=== PATIENT | female | born 1985 | race Caucasian/White ===

== ENCOUNTER 2025-03-21 05:40 | Day surgery (SDC) | payer OTHER, SELFPAY ==
--- NOTE | 2025-03-18 09:23 | ESHP_ITS ---
RE: ABY GABRIEL : 1985 DATE OF ADMISSION: 03/21/2025 HISTORY OF PRESENT ILLNESS: This is a 39-year-old 3, para 2-0-1-2 with abnormal uterine bleeding and endometrial polyp, who presents for hysteroscopic polyp removal. ALLERGIES: NO KNOWN DRUG ALLERGIES. MEDICATIONS: None. SOCIAL HISTORY: She is . She denies any alcohol, drug use, or smoking. PAST MEDICAL HISTORY: Borderline chronic hypertension, Dupuytren's contracture bilaterally, gestational hypertension, colon polyps. FAMILY HISTORY: Colon cancer, hypertension, familial polyposis. OBSTETRIC HISTORY: Two previous full-term normal vaginal deliveries. PAST SURGICAL HISTORY: Colonoscopy with polyp removal. REVIEW OF SYSTEMS: She denies any chest pain, palpitations, cough, fever, shortness of breath, or lower extremity pain. She denies any headache, change in vision, right upper quadrant pain, or flank pain. PHYSICAL EXAMINATION: VITAL SIGNS: Blood pressure is 126/84, heart rate 88, respirations 18, temperature 98.6. HEENT: Oropharynx and sclerae are clear. LUNGS: Clear to auscultation bilaterally. HEART: Regular rate and rhythm. ABDOMEN: Nontender. PELVIC: Deferred. EXTREMITIES: Nontender. SKIN: No gross rashes or lesions. NEUROLOGIC: No focal deficit. ASSESSMENT: Abnormal uterine bleeding, endometrial polyp. PLAN: Hysteroscopy, MyoSure removal of endometrial polyp, fractional dilatation and curettage. Informed consent was obtained. The patient was made aware of the risks, complications, alternatives, and benefits of the proposed procedure, and she agrees. She is aware of the risk of injury to bowel, bladder, adjacent organs, pulmonary embolism, deep vein thrombosis, pelvic infection, reoperation to repair injury to internal organs, anesthesia complications, the possibility that a laparotomy needs to be performed to repair organs or control bleeding, the possibility that procedure is not able to be completed due to severe adhesions or technical difficulties. DT: 08:33:03 TT: 09:21:00 Ref: [id number] - TID: [id number]
[2025-03-20 10:25] VITALS: BMI 42.1
[2025-03-20 11:06] LABS: Basophils # (Auto) 0.0 Thou/mm3 (0.0-0.2); Basophils % (Auto) 0 % (0-2.5); Eosinophils # (Auto) 0.2 Thou/mm3 (0.0-0.5); Eosinophils % (Auto) 3 % (0-10); Hematocrit 43.0 % (36.0-46.0); Hemoglobin 14.2 g/dL (12.0-16.0); Immature Granulocytes Auto 0.02 Thou/mm3 (0.00-0.00); Lymphocytes # (Auto) 2.2 Thou/mm3 (1.0-4.8); Lymphocytes % (Auto) 33 % (10-50); Mean Corpuscular HGB Conc 33.0 g/dl (31.0-37.0); Mean Corpuscular Hemoglobin 29.6 pg (25.0-35.0); Mean Corpuscular Volume 90 fL (80-100); Monocytes # (Auto) 0.5 Thou/mm3 (0.0-0.8); Monocytes % (Auto) 8 % (0-12); Neutrophils # (Auto) 3.7 Thou/mm3 (1.8-7.7); Neutrophils % (Auto) 55 % (37-80); Nucleated Red Blood Cell # 0.00 Thou/mm3 (0.00-0.00); Nucleated Red Blood Cell % 0 /100 WBC (0); Platelet Count 317 Thou/mm3 (140-440); RDW Standard Deviation 43.2 fL (36.4-46.3); Red Blood Count 4.79 Miln/mm3 (4.00-5.20); White Blood Count 6.7 Thou/mm3 (3.6-11.0)
[2025-03-20 11:19] LABS: INR 1.1 (0.9-1.3); Partial Thromboplastin Time 28.6 Seconds (22.0-36.0); Prothrombin Time 11.8 Seconds (9.0-12.2)
[2025-03-20 11:25] LABS: Alanine Aminotransferase 24 U/L (10-49); Albumin, Serum 4.7 gm/dL (3.5-5.0); Albumin/Globulin Ratio 2.1 (1.2-2.2); Alkaline Phosphatase 80 U/L (46-116); Anion Gap 10 (7-16); Aspartate Amino Transferase 22 U/L (0-34); BUN/Creatinine Ratio 15 Ratio (12-20); Beta HCG,Quantitative < 1 mIU/mL (<5.0); Bilirubin,Total 0.5 mg/dL (0.3-1.2); Blood Urea Nitrogen 9 mg/dL (9-23); Calcium 9.8 mg/dL (8.3-10.6); Calcium (Corrected) 9.8 mg/dL (8.5-10.1); Carbon Dioxide 26.2 mMol/L (20.0-31.0); Chloride 107 mMol/L (98-107); Creatinine (Component) 0.6 mg/dL (0.6-1.3); Estimated Creatinine Clearance 157.7 mL/min (>60); Globulin 2.2 gm/dL (2.3-3.5); Glucose 105 mg/dL (74-106); Osmolality,Calculated 283 (275-295); Potassium 4.1 mMol/L (3.4-5.1); Sodium 143 mMol/L (136-145); Total Protein 6.9 gm/dL (5.7-8.2); eGFR > 60 See Note
[2025-03-21] VITALS (7 sets, daily range): BP systolic 105–141; BP diastolic 72–86; PULSE 72–103; RESP 12–20; TEMP 36.2–36.4; O2SAT 92–96; BMI 42.0
--- NOTE | 2025-03-21 07:15 | CHAP ---
Visited briefly with patient and spouse and gave encouragement and prayer.
--- NOTE | 2025-03-21 08:14 | ESOP_ITS ---
Operative Note - CERTIFIED SCRUB TECH Procedure Date of procedure: 03/21/25 Procedure Performed: Hysteroscopy MyoSure removal of endometrial polyp Fractional dilatation curettage Indication: Abnormal uterine bleeding secondary to endometrial polyp Pre-Op diagnosis: Abnormal uterine bleeding secondary to endometrial polyp Post-Op diagnosis: Abnormal uterine bleeding secondary to endometrial polyp Anesthesia type: General Procedure description: After proper informed consent was obtained and the patient made aware of the risk complications alternatives and benefits of the proposed procedure she was taken to the operating room where she underwent induction of general anesth esia.? She was placed in the dorsal lithotomy position and prepped and draped the usual sterile fashion.? A timeout was performed.? A bivalve speculum was inserted.? A single-tooth tenaculum was used to grasp the anterior lip of the cervix.? The uterine cavity was sounded to 7 cm.?The cervix was dilated to accommodate the 5.5 mm Omni hysteroscope.? Using the Aquilex system and normal saline as the distending media the hysteroscopy was performed and a 3 x 3 mm endometrial polyp was seen at the posterior lower uterine segment. ? The Using the MyoSure Reach device the polypectomy was performed and specimen sent to pathology. The fluid deficit at the end of the MyoSure procedure was 125 cc.? The endocervix was curetted with the Kevorkian curette and specimen sent to pa thology.? The uterine cavity was curetted with a 5 mm curette and specimen sent to pathology. All instruments were removed from the vagina. There was no bleeding at the end of the procedure. She tolerated the procedure well counts were correct. She was transferred to the cover room in stable condition. I discussed with the patient's the nature of her condition, the intraoperative findings, the expectation for recovery all questions answered. Specimen: other (1. endometrial polyp 2. endocervical curettings 3. endometrial curettings. ) Estimated blood loss (ml): 5 Findings: Uterus sounded to 7 cm anteverted Endometrial polyp posterior lower uterine segment 3 x 3 mm Normal appearing endocervical canal Grossly normal-appearing cervix and vagina No other abnormalities of the uterine cavity. Complications: none Surgical staff Anesthesiologist : Dr Jack Surgeon: Dr Powell Operation Date: 03/21/25 07:30 <No data on this case meets the specified criteria> Diagnosis Discharge Diagnosis (1) Abnormal uterine bleeding due to endometrial polyp: Status: Acute Problem List Completed Was Problem List Reviewed/Reconciled?: Yes
--- NOTE | 2025-03-21 08:14 | SUR.PHASEI ---
0814: Pt. AAOx4, vitals stable, breathing unlabored, no complaint of pain or nausea, peripad in place CDI, no active bleed noted, report recieved from Tamara FOUNTAIN and Daniel MENDOZA.
--- NOTE | 2025-03-21 09:07 | SUR.PHASEII ---
0907: Pt. AAOx4, vitals stable, breathing unlabored, no complaint of pain or nausea, peripad in place, CDI, no active bleed noted, pt. tolerated sips of water well, pt. ambulated to wheelchair with steady gait and no assist, no complications. Gave discharge instructions to the pt. and her ride, both verbalized understanding and had no further questions. Pt. left with all personal belongings.
== END 2025-03-21 09:07 | disposition home or self-care (01) ==
PROVIDERS: PCP Nurse Practitioner Family; Referring Provider Specialist; Visit Provider Specialist
PROC: 0U5B8ZZ Destruction of Endometrium, Via Natural or Artificial Opening Endoscopic (ICD-10-PCS; CPT 58563; principal; 2025-03-21 07:30)
DX: N84.0 Polyp of corpus uteri (principal); N93.9 Abnormal uterine and vaginal bleeding, unspecified
CPT/HCPCS: 58558; 36415; 80053; 84702; 85025; 85610; 85730; 86850; 86900; 86901; A4217; A4649; J0690; J1100; J1885; J2250; J2405; J2704; J2765; J3010; J3490